=== PATIENT | female | born 1995 | race Caucasian/White ===

== ENCOUNTER 2018-10-31 10:48 | Emergency (ER) | payer BC ==
[~2018-10-31] VITALS: Wt 56.0 kg
[2018-10-31 10:51] VITALS: BP 138/76; PULSE 79; RESP 18
[2018-10-31] MEDS ORDERED: HYDR-3029 PO (12:00)
[2018-10-31] MEDS ORDERED: predniSONE 20 MG TAB PO ONE (12:00)
[2018-10-31] MEDS ORDERED: BEN25 PO (12:00)
[2018-10-31] MEDS ORDERED: DIPHENHYDRAMINE 25 MG CAP PO ONE (12:00)
[2018-10-31] MEDS ORDERED: MED4DP PO (12:00)
--- NOTE | 2018-10-31 15:20 | ERD ---
ER Documentation Chief Complaint Chief Complaint RASH AND ITCHING SINCE LAST NIGHT HPI 23 yr old female complaining of rash and itching since last night. No shortness of breath. No trouble swallowing. No facial swelling. No fevers. Patient denies any use of medications. Denies medical problems. NKDA. Surgical history denies. Social history smokes cigarettes. ROS All systems reviewed and are negative except as per history of present illness. Medications Home Meds Active Scripts Methylprednisolone* (Medrol* DOSE PACK) 4 Mg/Dose-Pack Tab.ds.pk, 4 MG PO . DIRECTED, #1 PACKET Prov:LANCE HERNANDEZ PA-C 10/31/18 Hydroxyzine Hcl* (Hydroxyzine Hcl*) 10 Mg Tablet, 10 MG PO Q6H PRN for ITCHING, #30 TAB Prov:LANCE HERNANDEZ PA-C 10/31/18 Diphenhydramine Hcl* (Benadryl*) 25 Mg Cap, 25 MG PO Q6, #30 CAP Prov:LANCE HERNANDEZ PA-C 10/31/18 Allergies Allergies: Coded Allergies: No Known Allergy (Unverified , 10/31/18) PMhx/Soc Medical and Surgical Hx: pt denies Medical Hx, pt denies Surgical Hx Hx Miscellaneous Medical Probl: Yes (vit D deficiency,) Hx Alcohol Use: Yes (occassionally) Hx Substance Use: Yes (marijuana) Hx Tobacco Use: No Smoking Status: Never smoker FmHx Family History: No diabetes, No coronary disease, No other Physical Exam Vitals Vital Signs Date Temp Pulse Resp B/P (MAP) Pulse Ox O2 O2 Flow FiO2 Time Delivery Rate 10/31/18 98.1 79 18 138/76 99 10:51 (96) Physical Exam GENERAL: The patient is well-appearing, well-nourished, in no acute distress HEENT: Atraumatic. Conjunctivae are pink. Pupils equal, round, and reactive to light. There is no scleral icterus. Tympanic membranes clear bilaterally. Oropharynx clear. NECK: C-spine is soft and supple. There is no meningismus. There is no cervical lymphadenopathy. CHEST: Clear to auscultation bilaterally. There are no rales, wheezes or rhon chi. HEART: Regular rate and rhythm. No murmurs, clicks, rubs or gallops. ABDOMEN:Soft, nontender and nondistended. Good bowel sounds. No rebound or guarding. No gross peritonitis. No gross organomegaly or masses. SKIN: Pinpoint erythematous spots to arms and torso. No vesicles or pustules. Results 24 hrs Current Medications Medications Dose Sig/Alex Start Time Status Last (Trade) Ordered Route PRN Stop Time Admin Dose Reason Admin 25 mg ONCE ONCE 10/31/18 DC 10/31/18 Diphenhydrami PO 12:00 11:53 ne HCl 10/31/18 12:01 (Benadryl) Prednisone 60 mg ONCE ONCE 10/31/18 DC 10/31/18 (Prednisone) PO 12:00 11:52 10/31/18 12:01 Procedures/MDM ER: Benadryl and Decadron given in ED. MDM: 23-year-old female presenting with rash. Patient will be discharged with supportive medications. It looks like that the rash is an allergic reaction I have low suspicion for anaphylaxis. I have low suspicion for parasitic or ba cterial infection. Patient is discharged with strict ER precautions and told to follow-up with primary care within 1 to 2 days for close evaluation. Patient is told symptoms change or worsen to return immediately to the ER. All questions answered at discharge Departure Diagnosis: Primary Impression: Rash Condition: Stable Patient Instructions: Self-Care for Skin Rashes Referrals: [facility], [facility] YOU HAVE RECEIVED A MEDICAL SCREENING EXAM AND THE RESULTS INDICATE THAT YOU DO NOT HAVE A CONDITION THAT REQUIRES URGENT TREATMENT IN THE EMERGENCY DEPARTMENT. FURTHER EVALUATION AND TREATMENT OF YOUR CONDITION CAN WAIT UNTIL YOU ARE SEEN IN YOUR DOCTORS OFFICE WITHIN THE NEXT 1-2 DAYS. IT IS YOUR RESPONSIBILITY TO MAKE AN APPOINTMENT FOR FOLOW-UP CARE. IF YOU HAVE A PRIMARY DOCTOR --you should call your primary doctor and schedule an appointment IF YOU DO NOT HAVE A PRIMARY DOCTOR YOU CAN CALL OUR PHYSICIAN REFERRAL HOTLINE AT IF YOU CAN NOT AFFORD TO SEE A PHYSICIAN YOU CAN CHOSE FROM THE FOLLOWING [facility], [facility] [id number] [facility] [address] [facility] [address] [facility] [address] [facility] [address] [facility] [facility] [address] Additional Instructions: FOLLOW UP WITH YOUR PRIMARY CARE PHYSICIAN TOMORROW.Return to this facility if you are not improving as expected. LANCE HERNANDEZ PA-C October 31, 2018 15:19
== END 2018-10-31 12:33 | disposition home or self-care (01) ==
LOC: FTE 10:48
DX: R21 Rash and other nonspecific skin eruption (principal); F17.210 Nicotine dependence, cigarettes, uncomplicated
CPT/HCPCS: J7512; Z7610; 99283